=== PATIENT | male | born 1995 | race Caucasian/White ===

== ENCOUNTER 2018-04-08 18:07 | Emergency (ER) | payer SELFPAY ==
[~2018-04-08 18:07] MED LIST: IBUP800T37 PO; LOR5/325 PO
--- NOTE | 2018-04-08 18:14 | ER Report ---
History and Physical Time Seen By MD: 18:13 HPI/ROS CHIEF COMPLAINT: Left ankle pain HISTORY OF PRESENT ILLNESS: Patient is a 22-year-old male here complaining of left ankle pain after jumping accidentally into a pothole one week ago. Patient reports persistent pain since time of onset for his able to bear weight and ambulate with only moderate difficulty. Sensory neural exam is intact at time of evaluation, perfusion is adequate. Patient denies further injury at this time. REVIEW OF SYSTEMS: Constitutional: No fever, no chills. Musculoskeletal: No back pain. Skin: No rashes. Neurological: No headache, + NV exam intact in LE Allergies: Coded Allergies: No Known Drug Allergies (Unverified , 02/19/17) Home Meds Active Scripts Tramadol Hcl (TRAMADOL HCL) 50 Mg Tablet, 50 MG PO Q6H Y for PAIN, #12 TAB 0 Refills Prov:NEELIMA ALBRIGHT DO 04/08/18 Hydrocodone Bit/Acetaminophen (HYDROCODON-ACETAMINOPHEN 5-325) 1 Each Tablet, 1 EACH PO Q4H Y for PAIN, #6 TAB 0 Refills Prov:IVETH SALAZAR MD 02/19/17 Hx Substance Use Disorder: No Constitutional Vital Sign - Last 24 Hours 04/08/18 04/08/18 04/08/18 18:12 19:07 19:09 Temp 98.5 Pulse 95 85 83 Resp 12 16 B/P (MAP) 130/74 132/82 (99) 126/74 (91) Pulse Ox 92 95 94 O2 Delivery Room Air Room Air Room Air Physical Exam General Appearance: The patient is alert, has no immediate need for airway protection and no signs of toxicity. No acute distress Neurological: No focal neurological deficits Skin: Warm and dry, no rashes. Musculoskeletal: Neck is supple non tender. Left lower Extremity is tender, + mild left ankle edema and TTP lateral ankle and have full range of motion. DIFFERENTIAL DIAGNOSIS: After history and physical exam differential diagnosis was considered for fracture, contusion, dislocation, sprain Medical Decision Making EKG/Imaging Imaging INDICATION: stepped in pothole. DATE: 04/08/2018 6:44 PM. TECHNIQUE: FOOT 2 VIEW LEFT, ANKLE 3 VIEW MIN LEFT COMPARISON: None FINDINGS: Ankle: Alignment is normal at the mortise. The osseous fragment projected at the lateral margin of the foot is in an area of soft tissue swelling and edema and is suspicious for an avulsion fragment. Left foot: There is otherwise no evidence of fracture dislocation at the foot. IMPRESSION: Soft tissue swelling on the lateral aspect of the foot with possible avulsion fragment near the cuboid. The exact donor site is uncertain. ED Course/Re-evaluation ED Course Patient is a 22-year-old male here with complaints of left ankle pain after stepping in a pothole. Patient has significant swelling of the oral aspect of the foot and ankle. He was found to have a possible avulsion fracture. A walking boot was placed for comfort and stability the patient was advised to follow up with orthopedics within 1 week. Patient was given Toradol for analgesia and sent home with a prescription for tramadol. Patient voiced understanding of plan. Patient was able to ambulate prior to discharge. Neurovascular exam remained intact. Decision to Disposition Date: Apr 08, 2018 Decision to Disposition Time: 19:08 Depart Departure Latest Vital Signs Vital Signs Date Time Temp Pulse Resp B/P (MAP) Pulse Ox O2 Delivery O2 Flow Rate FiO2 04/08/18 19:09 83 126/74 (91) 94 Room Air 04/08/18 19:07 16 04/08/18 18:12 98.5 Impression: Primary Impression: Left ankle injury Condition: Improved Disposition: HOME OR SELF-CARE New Scripts Tramadol Hcl (TRAMADOL HCL) 50 Mg Tablet 50 MG PO Q6H Y for PAIN, #12 TAB 0 Refills Prov: NEELIMA ALBRIGHT DO 04/08/18 Patient Instructions: Ankle Fracture (ED) Additional Instructions: You may take one tablet of Tramadol every 6-8 hours as needed for pain. Please ICE, Rest, elevate and take NSAIDS (Ibuprofen/Naproxen). Please follow-up with orthopedics in one week. Please return promptly if he develop worsening pain and swelling, fevers, difficulty walking. NEELIMA ALBRIGHT DO Apr 08, 2018 18:14
[2018-04-08] MEDS ORDERED: KETOROLAC 30 MG/ML VIAL IM ONE (18:25)
--- NOTE | 2018-04-08 18:50 | RADIOLOGY IMAGING REPORT ---
FACILITY: [facility] PATIENT NAME: Salazar Agarwal : 1995 MR: [id number] V: [id number] EXAM DATE: ORDERING PHYSICIAN: NEELIMA ALBRIGHT TECHNOLOGIST: Location: [facility] Patient: Salazar Agarwal : 1995 Visit/Account:[id number] Date of Sevice: 04/08/2018 INDICATION: stepped in pothole. DATE: 04/08/2018 6:44 PM. TECHNIQUE: FOOT 2 VIEW LEFT, ANKLE 3 VIEW MIN LEFT COMPARISON: None FINDINGS: Ankle: Alignment is normal at the mortise. The osseous fragment projected at the lateral margin of th e foot is in an area of soft tissue swelling and edema and is suspicious for an avulsion fragment. Left foot: There is otherwise no evidence of fracture dislocation at the foot. IMPRESSION: Soft tissue swelling on the lateral aspect of the foot with possible avulsion fragment near the cuboi d. The exact donor site is uncertain. Report Dictated By: Gilma Davis MD at 04/08/2018 6:44 PM Report E-Signed By: Gilma Davis MD at 04/08/2018 6:47 PM WSN:[id number]
--- NOTE | 2018-04-08 18:50 | RADIOLOGY IMAGING REPORT ---
FACILITY: [facility] PATIENT NAME: Salazar Agarwal : 1995 MR: [id number] V: [id number] EXAM DATE: ORDERING PHYSICIAN: NEELIMA ALBRIGHT TECHNOLOGIST: Location: [facility] Patient: Salazar Agarwal : 1995 Visit/Account:[id number] Date of Sevice: 04/08/2018 INDICATION: stepped in pothole. DATE: 04/08/2018 6:44 PM. TECHNIQUE: FOOT 2 VIEW LEFT, ANKLE 3 VIEW MIN LEFT COMPARISON: None FINDINGS: Ankle: Alignment is normal at the mortise. The osseous fragment projected at the lateral margin of th e foot is in an area of soft tissue swelling and edema and is suspicious for an avulsion fragment. Left foot: There is otherwise no evidence of fracture dislocation at the foot. IMPRESSION: Soft tissue swelling on the lateral aspect of the foot with possible avulsion fragment near the cuboi d. The exact donor site is uncertain. Report Dictated By: Gilma Davis MD at 04/08/2018 6:44 PM Report E-Signed By: Gilma Davis MD at 04/08/2018 6:47 PM WSN:[id number]
[2018-04-08] MEDS ORDERED: TRAM-420 PO (18:53)
[2018-04-08 19:09] VITALS: BP 126/74
== END 2018-04-08 19:09 | disposition home or self-care (01) ==
LOC: ER 18:14
DX: S99.812A Other specified injuries of left ankle, initial encounter (principal)
CPT/HCPCS: 73610; 73620; 96372; 99284; J1885; L1930

== ENCOUNTER 2018-07-20 08:51 | Emergency (ER) | payer SELFPAY ==
[~2018-07-20 08:51] MED LIST changes: +TRAM-420 PO
[2018-07-20] MEDS ORDERED: FLUORESCEIN SOD 1 MG 1 EA STRP OD ONE ×2 (09:20)
[2018-07-20] MEDS ORDERED: PROPARACAI/FLUORESCEIN 5 ML OP DROPS OP ONE (09:20)
--- NOTE | 2018-07-20 09:45 | ER Report ---
History and Physical Time Seen By MD: 09:00 Hx. of Stated Complaint: Pt. is a arc welder. Pt. was fine yesterday morning, then yesterday evening he noticed a scratchy feeling in his left eye. Attempted to remove foreign body, but was unsuccessful. Swelling this morning, "feels like his eye is going to explode". Photophobia reported, as well. 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 Cardiovascular: No chest pain, no palpitations. Gastrointestinal: No vomiting, no abdominal pain. Musculoskeletal: No back pain. Remainder of the 14 system rev: Yes Allergies: Coded Allergies: No Known Drug Allergies (Unverified , 07/20/18) Home Meds Discontinued Scripts Tramadol Hcl (TRAMADOL HCL) 50 Mg Tablet, 50 MG PO Q6H PRN for PAIN, #12 TAB 0 Refills Prov:NEELIMA ALBRIGHT DO 04/08/18 Hydrocodone Bit/Acetaminophen (HYDROCODON-ACETAMINOPHEN 5-325) 1 Each Tablet, 1 EACH PO Q4H PRN for PAIN, #6 TAB 0 Refills Prov:IVETH SALAZAR MD 02/19/17 Reviewed Nurses Notes: Yes Old Medical Records Reviewed: Yes Hx Substance Use Disorder: No Hx Alcohol Use: No Constitutional Vital Sign - Last 24 Hours 07/20/18 08:59 Temp 98.0 Pulse 86 Resp 16 B/P (MAP) 129/87 Pulse Ox 94 O2 Delivery Room Air Physical Exam General appearance: Alert no distress. Respiratory: Chest is non tender, lungs are clear to auscultation. Cardiac: Regular rate and rhythm [ ] I examination extra ocular motors intact pupils equal round and reactive after proparacaine was placed negative Gregorio sign has uptake of fluorescein consistent with a corneal abrasion otherwise exam is unremarkable DIFFERENTIAL DIAGNOSIS: After history and physical exam differential diagnosis was considered for foreign body versus corneal abrasion Medical Decision Making ED Course/Re-evaluation ED Course Clinical course medical decision making 22-year-old male physical exam consistent with a probable corneal abrasion proparacaine was placed negative Gregorio sign positive uptake of fluorescein consistent with a foreign body irrigation will be performed to confirm foreign body sensation is caused by either foreign body versus uptake from the corneal abrasion After irrigation repeat examination patient is completely asymptomatic no foreign body I will treat it as a corneal abrasion started on antibiotics and discharged Decision to Disposition Date: Jul 20, 2018 Decision to Disposition Time: 10:17 Depart Departure Latest Vital Signs Vital Signs Date Time Temp Pulse Resp B/P (MAP) Pulse Ox O2 Delivery O2 Flow Rate FiO2 07/20/18 08:59 98.0 86 16 129/87 94 Room Air Impression: Primary Impression: Corneal abrasion Condition: Improved Disposition: HOME OR SELF-CARE Referrals: KERA LOPEZ 5 Days New Scripts Amoxicillin 500 Mg Tab (AMOXICILLIN 500 MG TAB) 500 Mg Tablet 2 TAB PO Q12H, #56 TAB TAKE TWO TABLETS BY MOUTH EVERY 12 HOURS Prov: KARTHIKEYAN ROWLEY MD 07/20/18 Patient Instructions: Corneal Abrasion (DC) KARTHIKEYAN ROWLEY MD Jul 20, 2018 09:45
[2018-07-20] MEDS ORDERED: AMOX500T10 PO (10:18)
[2018-07-20 10:20] VITALS: BP 138/80
== END 2018-07-20 10:23 | disposition home or self-care (01) ==
LOC: ER 08:51
DX: S05.02XA Injury of conjunctiva and corneal abrasion without foreign body, left eye, initial encounter (principal)
CPT/HCPCS: 99283

== ENCOUNTER 2018-11-30 17:54 | Emergency (ER) | payer SELFPAY ==
[~2018-11-30 17:54] MED LIST changes: +AMOX500T10 PO
[2018-11-30 17:58] VITALS: BP 141/73
--- NOTE | 2018-11-30 18:00 | ER Report ---
History and Physical Time Seen By MD: 17:59 Hx. of Stated Complaint: FEVER, COUGH, NAUSEA HPI/ROS CHIEF COMPLAINT: Fever, cough, nausea HISTORY OF PRESENT ILLNESS: This is a 23-year-old male. He's been sick for a few days, having fevers. Cough and nausea. No shortness of breath. Normal bowel and bladder function. REVIEW OF SYSTEMS: Respiratory: [No cough, no dyspnea.] Cardiovascular: [No chest pain, no palpitations.] Gastrointestinal: [No vomiting, no abdominal pain.] Musculoskeletal: [No back pain.] Allergies: Coded Allergies: No Known Drug Allergies (Unverified , 07/20/18) Home Meds Active Scripts Ondansetron 4 Mg Odt (ONDANSETRON 4 MG ODT) 4 Mg Tab.rapdis, 4 MG PO Q6H PRN for NAUSEA/VOMITING, #20 TAB 0 Refills Prov:IVETH SALAZAR MD 11/30/18 Discontinued Scripts Amoxicillin 500 Mg Tab (AMOXICILLIN 500 MG TAB) 500 Mg Tablet, 2 TAB PO Q12H, #56 TAB TAKE TWO TABLETS BY MOUTH EVERY 12 HOURS Prov:KARTHIKEYAN ROWLEY MD 07/20/18 Reviewed Nurses Notes: Yes Hx Substance Use Disorder: No Hx Alcohol Use: No Constitutional Vital Sign - Last 24 Hours 11/30/18 17:58 Temp 99.8 Pulse 116 Resp 20 B/P (MAP) 141/73 Pulse Ox 93 O2 Delivery Room Air Physical Exam General Appearance: The patient is alert, has no immediate need for airway protection and no current signs of toxicity. Eyes: Pupils equal and round no injection. ENT: Normal oral mucosa. Moist mucous membranes. Posterior oropharynx with erythema. Nasal mucosa erythematous as well. Tympanic membranes are normal. Neck: Neck is supple and non tender. Respiratory: Chest is non tender, lungs are clear to auscultation. Cardiac: regular rate and rhythm Gastrointestinal: Abdomen is soft and non tender, no masses, bowel sounds normal. Musculoskeletal: Extremities have full range of motion. Skin: No rashes or lesions. DIFFERENTIAL DIAGNOSIS: After history and physical exam differential diagnosis was considered for symptoms suggesting viral syndrome versus influenza Medical Decision Making Data Points Laboratory Hematology Test 11/30/18 17:17 Influenza Virus Type A (PCR) Negative (NEGATIVE) Influenza Virus Type B (PCR) Negative (NEGATIVE) Chemistry Test 11/30/18 17:17 Influenza Virus Type A (PCR) Negative (NEGATIVE) Influenza Virus Type B (PCR) Negative (NEGATIVE) ED Course/Re-evaluation ED Course Influenza negative. Discussed conservative management of viral syndrome. Decision to Disposition Date: Nov 30, 2018 Decision to Disposition Time: 18:46 Depart Departure Latest Vital Signs Vital Signs Date Time Temp Pulse Resp B/P (MAP) Pulse Ox O2 Delivery O2 Flow Rate FiO2 11/30/18 17:58 99.8 116 20 141/73 93 Room Air Impression: Primary Impression: Viral syndrome Condition: Improved Disposition: HOME OR SELF-CARE New Scripts Ondansetron 4 Mg Odt (ONDANSETRON 4 MG ODT) 4 Mg Tab.rapdis 4 MG PO Q6H PRN for NAUSEA/VOMITING, #20 TAB 0 Refills Prov: IVETH SALAZAR MD 11/30/18 Patient Instructions: Viral Syndrome (ED) Additional Instructions: Rest and increase fluids. Take Tylenol or Ibuprofen as needed for fever or pains. Take Zofran 4mg, one every 6 hours as needed for nausea. IVETH SALAZAR MD Nov 30, 2018 18:00
[2018-11-30] MEDS ORDERED: ONDANSETRON 4 MG ODT TABDP SL ONE (18:05)
[2018-11-30] MEDS ORDERED: KETOROLAC TROM 10MG TAB PO ONE (18:05)
[2018-11-30] MEDS ORDERED: ONDA4TAB9 PO (18:49)
[2018-11-30] MEDS ORDERED: ONDANSETRON 4 MG ODT TH SL ONE (18:50)
== END 2018-11-30 19:11 | disposition home or self-care (01) ==
LOC: ER 18:09
DX: B34.9 Viral infection, unspecified (principal)
CPT/HCPCS: 87502; 99283; S0119